=== PATIENT | female | born 1960 | race Caucasian/White ===

== ENCOUNTER 2016-06-30 15:15 | Observation (INO) | payer MEDICAID ==
[2016-06-30] MEDS ORDERED: ACETAMINOPHEN 325 MG TABLET PO PRN (15:29)
[2016-06-30] MEDS ORDERED: MAG-AL PLUS XS SUSP 30 ML UDC PO PRN (15:29)
[2016-06-30] MEDS ORDERED: HOME MEDICATION LIST NEEDED 1 EA EACH MC ONE (15:29)
[2016-06-30] MEDS ORDERED: FUROSEMIDE 40 MG/4 ML VIAL IV SCH (15:45)
[2016-06-30] MEDS ORDERED: ROPINIROLE 1 MG TABLET PO PRN (19:21)
[2016-06-30] MEDS ORDERED: ZOLPIDEM TARTRATE 5 MG TABLET PO PRN (19:23)
[2016-06-30] MEDS ORDERED: DEXTROSE 50% WATER 25 GM/50 ML SYR IV PRN (19:37)
[2016-06-30] MEDS ORDERED: NORMAL SALINE 100 ML IV ONE (20:14)
[2016-06-30] MEDS ORDERED: TERAZOSIN HCL 5 MG CAPSULE PO SCH ×2 (21:00)
[2016-06-30] MEDS: cloNIDine HCL 0.1 MG TABLET PO SCH (21:02)
[2016-06-30] MEDS: AMLODIPINE BESYLATE 5 MG TABLET PO SCH (21:02)
[2016-06-30] MEDS: CARVEDILOL 12.5 MG TABLET PO SCH (21:02)
[2016-06-30] MEDS: INSULIN LISPRO 100 UNIT/ML ML SUBCUT SCH (21:03)
--- NOTE | 2016-06-30 21:10 | HISTORY & PHYSICAL ---
DATE OF ADMISSION: 06/30/16 ATTENDING PHYSICIAN: Larisa Ann MD HISTORY OF PRESENT ILLNESS: The patient came into the clinic today aware that she had been short of breath for over a week, had ringing in her ears, and felt some chest tightness. She was found to have a pulse oxygenation reading in the 60s, with dusky blue fingertips. Her pulse oxygenation was normalized with a non -rebreather mask and 5 liters of oxygen, thereafter stabilizing at 4 liters of O2 by nasal cannula. Her vital signs were fairly normal for her with some hypertension noted. An EKG and laboratory data were surprisingly stable for her as well. Ultimately a chest x-ray and a discussion with her pickling tank operator led me to believe that she does have fluid overload related to her end stage renal disease and would benefit from brief hospitalization for diuresis. PAST MEDICAL HISTORY 1. Type 2 diabetes, recently well controlled, but in the past very poorly controlled. 2. Hypertension, typically not very well controlled. 3. Charcot foot on the right side. 4. Serious chronic disease with dialysis eminent. Creatinine has been 4.6 recently. 5. Obesity. 6. Severe lumbar spine disease, recent epidural steroid injection. 7. Narcolepsy. 8. Sleep apnea. 9. History of hepatitis C, now cleared due to treatment. 10. Chronic obstructive pulmonary disease. 11. Nocturnal hypoxia. PAST SURGICAL HISTORY 1. Fistula in the left arm. ALLERGIES: Cephalosporins. Sulfa. Penicillins. Interestingly she has had fluid retention with steroids before (Kenalog injection in the clinic resulted in fluid overload over a year ago). MEDICATIONS Albuterol inhaler 2 puffs q.4 hours PRN. Amlodipine 10 mg p.o. daily. Lipitor 20 mg p.o. daily. Carvedilol 25 mg p.o. b.i.d. Clonidine 0.1 mg p.o. b.i.d. Doxazosin 2 mg p.o. at h.s. Lasix 80 mg p.o. daily with 40 mg p.o. dosing in the PM. Oxygen at night. Insulin 5 units with meals typically, but she is not very compliant with this. Lantus 90 units at h.s., I believe she is compliant with this. Levothyroxine 50 mcg tab p.o. daily. Requip 2 mg at h.s. PRN restless legs. Sevelamer carbonate (Renvela) 800 mg p.o. 3 times daily with meals. Ambien 10 mg at h.s. Percocet 10/325 mg 1 p.o. q.6 hours PRN pain. IMMUNIZATIONS: Up to date to include pneumonia series. LABORATORY DATA: Stable CBC with no significant anemia. Normal troponin of 0.022. CMP remarkable for glucose of 176, BUN 73, creatinine of 4.7. PHYSICAL EXAMINATION VITAL SIGNS: On arrival to the hospital, patient was afebrile. Blood pressure 184/100, pulse 84, respiratory rate 24, dyspneic. 94% on 4 liters with oxygen at rest. GENERAL: She appears her usual self after stabilizing on oxygen at the clinic. Her clinic was improved. She was alert, oriented and able to make plans, realizing she should not be driving. She was able to access friends to help her get around today. HEENT: Unremarkable. CARDIAC: Regular rate and rhythm with no murmur. CHEST: Decreased breath sounds throughout with crackles heard at both bases. ABDOMEN: Obese, soft and nontender. EXTREMITIES: There is some chronic edema and venous stasis change typical for her, not severe. IMAGING: Chest x-ray done prior to admission revealed findings consistent with congestive heart failure/pulmonary edema at the bases. ASSESSMENT AND PLAN 1. Severe hypoxia in a lady whose history and workup thus far seems to suggest that her kidneys are just not serving her well in this last week. Interestingly , she did get steroids with her epidural steroid injection and this might have been a trigger. The case was discussed with her Glass Loading Equipment Tender Dr. Marx and he agrees that overnight admission with diuresis should resolve or improve her oxygen dependence. He mentioned 80 mg IV Lasix b.i.d. expecting her creatinine to bump up into the low 5s potentially. 2. Urinary retention, probably related to her L-spine issues. She has had urinary retention in recent history and should be self cathing at least twice day and she has not been doing that. This may have resulted in some urinary retention and some back pressure on the kidneys as well. 3. Type 2 diabetes mellitus. Typically easily to control. Will continue Lantus and sliding scale insulin. 4. Hypertension. This is not well controlled at present, especially with her fluid retention. Usual medications will be continued and blood pressure monitored. [facility]
[2016-06-30] MEDS ORDERED: POLYETHYLENE GLYCOL 3350 17 GM POWD.PACK PO ONE (21:33)
[2016-06-30] MEDS: INSULIN GLARGINE,HUM.REC.ANLOG 100 UNITS/ML ML SUBCUT SCH (21:34)
[2016-06-30] MEDS ORDERED: O2 HUMIDIFIER 650 ML BOTTLE INHALATION ONE (21:48)
[2016-06-30] MEDS ORDERED: cloNIDine HCL 0.1 MG TABLET PO SCH (22:15)
[2016-06-30] MEDS ORDERED: BUMETANIDE 1 MG TABLET PO SCH (22:30)
[2016-07-01] MEDS ORDERED: FUROSEMIDE 40 MG/4 ML VIAL IV SCH (01:45)
[2016-07-01] MEDS ORDERED: NORMAL SALINE 100 ML IV ONE ×2 (01:54→16:19)
[2016-07-01] MEDS ORDERED: FUROSEMIDE 40 MG/4 ML VIAL IV ONE ×3 (03:00→15:45)
[2016-07-01] MEDS ORDERED: LEVOTHYROXINE 50 MCG TABLET PO SCH (06:30)
[2016-07-01] MEDS: INSULIN LISPRO 100 UNIT/ML ML SUBCUT SCH ×3 (06:34→17:50)
[2016-07-01 06:52] LABS: CALCIUM 8.8 mg/dL (8.4-10.2); CREATININE 4.7 mg/dL (0.5-1.0); POTASSIUM 4.8 mmol/L (3.5-5.1)
[2016-07-01] MEDS: AMLODIPINE BESYLATE 5 MG TABLET PO SCH (08:47)
[2016-07-01] MEDS: CARVEDILOL 12.5 MG TABLET PO SCH (08:47)
[2016-07-01] MEDS: INSULIN GLARGINE,HUM.REC.ANLOG 100 UNITS/ML ML SUBCUT SCH (08:47)
[2016-07-01] MEDS: cloNIDine HCL 0.1 MG TABLET PO SCH (08:47)
--- NOTE | 2016-07-01 09:32 | RADIOLOGY REPORT ---
HISTORY: Pulmonary edema. COMPARISON: Chest x-ray June 30, 2016. FINDINGS: 2 views of the chest obtained. There is slight interval worsening of pulmonary edema when compared with previous days chest radiogra phs. There are no large effusions or pneumothorax. There remains mild prominence of the cardiac silho uette and pulmonary arteries. Trachea is midline. IMPRESSION: 1. Slight interval worsening pulmonary edema. Results were called. Final Electronic Signature: This report was electronically signed by Ike Hernandez MD on 07/01/2016 9:3 0 AM. martell /
[2016-07-01] MEDS ORDERED: WATER IRRIG 1,000 ML BOTTLE ONE (10:24)
[2016-07-01] MEDS ORDERED: FUROSEMIDE 40 MG/4 ML VIAL ONE ×2 (11:11→16:19)
[2016-07-01] MEDS ORDERED: BUMETANIDE 1 MG TABLET PO SCH (12:15)
[2016-07-01] MEDS ORDERED: ZOLPIDEM TARTRATE 5 MG TABLET PO PRN (12:15)
[2016-07-01] MEDS ORDERED: ALBUTEROL HFA 1 INH INHALER INHALATION PRN (12:16)
[2016-07-01] MEDS ORDERED: cloNIDine HCL 0.1 MG TABLET PO SCH (12:16)
[2016-07-01 14:27] VITALS: RESP 20; TEMP 98
[2016-07-01] MEDS ORDERED: CARVEDILOL 12.5 MG TABLET PO SCH ×2 (15:40→21:00)
--- NOTE | 2016-07-01 15:55 | PROGRESS NOTE: IM APSO ---
Assessment and Plan - Date of Encounter Date of Encounter: 07/01/16 (1) Diabetes mellitus Status: Chronic Assessment and plan: Not difficult to control at this admission or as outpatient, altho' pt is not very compliant with diet or medication, her glc are OK. Current Visit: No (2) Hypertensive urgency Status: Chronic Assessment and plan: BP has been almost impossible to control in recent months, related to impending complete renal failure and need for dialysis. I feel that her JAZIEL done on Sunday has precipitated some fluid retention and worsened BPs, which were absolutely horrible last night, better this AM, but intermittently still touching 180s. I was concerned about what meds are safe and advisable to use in her situation and spoke with Dr Forman denier control operator for Dr Marshall, who was very helpful and rec'd increasing Bblocker, clonidine, consider metolazone ( but we don't have at this hospital) and keep using large doses of Lasix, just follow labs carefully. Hydralazine also an option. Current Visit: No (3) Multiple complications of type 2 diabetes mellitus Status: Chronic Current Visit: No (4) Hypoxia Status: Acute Assessment and plan: Pt typically has borderline O2 sats, but has a profound requirement of 4-5 L at this time, and clearly has severe untreated sleep apnea difficult at night. Pt tried BiPAP and could not tolerate. She needs a sleep study (we discussed as outpt) but I fear with her noncompliance we will have problems finding something tolerable. I believe her present crisis is related to JAZIEL done Sunday ; steroids cause her to retain fluid, driving up BP, she has some pulmonary edema on that basis. Tool [place] tho't with diuresis and intensification of her BP meds we would see the hypoxia resolve. Much of this is a chronic infante and predictable; pt desperately wants to go home. Will diurese as much as possible, send her home with increased meds (same meds, new doses) and have her f/u as outpt tomorrow for labs, vitals. She had ECHO done 2014 with fine EF, doubt any changes there but may pursue ECHO as outpt. Current Visit: Yes - Time Spent With Patient Total time spent with greater than 50% in coordination of care (as documented) at patient's floor/unit and/or counseling patient: Greater than 35 minutes IM: PN Subjective General: fatigue, pain (chronic) Cardiovascular: no chest pain Respiratory: SOB (when she walks especially) IM: PN Objective Exam - I&O/Vital Signs I&O: Intake & Output 07/01/16 07/01/16 07/01/16 05:59 13:59 21:59 Intake Total 840 Output Total 1905 225 Balance -1065 -225 Weight 136.5 kg Intake: IV 120 Left Forearm 120 Oral 720 Output: Urine 1905 225 Other: Urine Appearance Clear Clear Urine Color Pale Pale Yellow Yellow Voiding Method Toilet Toilet # Voids 6 Vital Signs: Last Vital Signs Temp 36.6 C 07/01/16 14:25 Pulse 76 07/01/16 14:25 Resp 20 07/01/16 14:25 BP 164/90 07/01/16 14:24 Pulse Ox 90 07/01/16 15:29 Oxygen Flow Rate 4 Oxygen Delivery Method Nasal Cannula - Constitutional General appearance: Present: cooperative, disheveled, morbidly obese - Eye Eye exam: Present: normal appearance - Respiratory Respiratory exam: Present: clear. Absent: wheezes - Cardiovascular Cardiovascular exam: Present: RRR - GI/Abdominal GI/Abdominal exam: Present: soft. Absent: tenderness - Extremities Exam Extremities exam: Present: edema (chronic venous stasis, severe, wearing support socks) - Neurological Exam Neurological exam: Present: alert, oriented X3 - Psychiatric Psychiatric exam: Present: other (teary about her health) - Lab Labs: Laboratory Last Values Sodium 139 mmol/L (137-145) 07/01/16 06:20 Potassium 4.8 mmol/L (3.5-5.1) 07/01/16 06:20 Chloride 105 mmol/L (98-107) 07/01/16 06:20 Carbon Dioxide 24 mmol/L (22-30) 07/01/16 06:20 BUN 78 mg/dL (7-17) H* 07/01/16 06:20 Creatinine 4.7 mg/dL (0.5-1.0) H 07/01/16 06:20 GFR Calculation 10 mL/min 07/01/16 06:20 Glucose 123 mg/dL (70-100) H 07/01/16 06:20 Calcium 8.8 mg/dL (8.4-10.2) 07/01/16 06:20 Quality Questions - VTE Prophylaxis Assessment VTE Present on Admission?: No Patient at risk for venous thromboembolism?: Yes VTE Risk Level: Moderate Risk Pharmaceutical VTE prophylaxis contraindication reason: not indicated Mechanical VTE prophylaxis contraindication reason: N/A- VTE prophylaxsis ordered
[2016-07-01 19:11] LABS: CALCIUM 8.7 mg/dL (8.4-10.2); CREATININE 4.7 mg/dL (0.5-1.0); POTASSIUM 4.7 mmol/L (3.5-5.1)
[2016-07-01] MEDS ORDERED: BISACODYL 5 MG TABLET PO SCH (19:30)
--- NOTE | 2016-07-01 19:33 | DC SUMMARY: IM Note ---
Discharge Summary: IM/Peds Provider: Date of Admission: 06/30/16 Admitting Provider: MIGUELANGEL DIAS MD Attending Provider: MIGUELANGEL DIAS MD Discharging Provider: MIGUELANGEL DIAS MD Primary Care Provider: Discharge Date: 07/01/16 - Diagnosis (1) Diabetes mellitus Status: Chronic Qualifiers: Diabetes mellitus type: type 2 Diabetes mellitus complication detail: with chronic kidney disease Diabetes mellitus long term care phlebotomist insulin use: with detention use Chronic kidney disease stage: stage 4 (severe) (2) Hypertensive urgency Status: Chronic (3) Multiple complications of type 2 diabetes mellitus Status: Chronic (4) Hypoxia Status: Acute (5) Sleep apnea syndrome Status: Acute Hospital Course: See note from today; extensive thinking and discussions with nephrology; pt probably had fluid retention r/t JAZIEL steroids, with unmanageable HTN and resulting pulmonary edema. She is clinically stable, still with large O2 req, but has diuresed at least 3 L and wants to go home. Will f/u in AM for reassessment of labs and VS. Bp finally reasonable this hoda, O2 reqt not reasonable but per nephrology will take several days to improve and pt doesn't want to stay with us 24 hrs/day understandably. I feel there has been enough assessment for her to be safe with help of friends and family and return in AM. She has a worrisome tolerance for hypoxia, showing the severity of her sleep apnea,but it may be difficult for us to get a solution as she couldn't even tolerate BiPAP. Apnea observed by staff. Pt told 10 yrs ago she had sleep apnea but has not ever been treated. She considers herself to have narcolepsy. - Time Spent with Patient Total time spent providing and/or coordinating discharge services: Discharge - Patient/Caregiver Discharge Instructions Activity Level: Unfortunately, MINIMAL ACTIVITY! Have someone else do everything , and have others drive. Pretty much you need to pretend you are in the hospital. You must be on O2 all the time, use the mask at night on 4 L and use the mask if you need to walk around, because your oxygen still drops when you walk. Diet: Diabetic and kidney diet! Avoid lots of sugars or salt Additional Instructions: Two blood pressure medicines are increased; Clonidine and Coreg; you have these at home, just double them until you get the new prescriptions. Please also take your 80mg Lasix three times a day during these days of trying to shed fluids. Follow up: MIGUELANGEL DIAS MD [Primary Care Provider] - 7 Days Home Medications: cloNIDine HCL [Catapres*] 0.2 mg PO BID #60 tablet Carvedilol [Coreg*] 50 mg PO WITH BRKFST AND DINN #60 tablet Disposition: HOME, SELF-CARE Discharge Summary Data - Medication History Medication History: Home Medications Amlodipine Besylate [Norvasc*] 10 mg PO HS 12/16/14 Atorvastatin Calcium [Lipitor*] 20 mg PO HS 12/16/14 Furosemide [Lasix*] 80 mg PO DAILY 12/16/14 Insulin Glargine,Hum.rec.anlog [Lantus*] 90 units SUBCUT HS 12/16/14 Insulin Lispro [Humalog*] 0 units SUBCUT PRN PRN 12/16/14 Ropinirole HCl [Requip] 2 mg PO HS 12/16/14 Acetaminophen [Tylenol*] 650 mg PO Q6H PRN #0 tablet 07/01/16 Albuterol Hfa [Proventil Inhaler*] 2 puff IH Q4H PRN 07/01/16 Amlodipine Besylate [Norvasc*] 10 mg PO DAILY tablet 07/01/16 Carvedilol [Coreg*] 50 mg PO WITH BRKFST AND DINN #60 tablet 07/01/16 Insulin Glargine,Hum.rec.anlog [Lantus*] 90 units SUBCUT HS ml 07/01/16 Levothyroxine [Synthroid*] 50 mcg PO 0630 tablet 07/01/16 Levothyroxine [Synthroid*] 50 mcg PO BEFORE BREAKFAST 07/01/16 Oxycodone HCl/Acetaminophen [Percocet 10-325 mg Tablet] 1 tab PO Q6H PRN Ropinirole HCl [Ropinirole HCl*] 2 mg PO HS PRN #0 tablet 07/01/16 Sevelamer Carbonate [Renvela] 800 mg PO 3X DAILY WITH MEALS 07/01/16 cloNIDine HCL [Catapres*] 0.2 mg PO BID #60 tablet 07/01/16 oxyCODONE HCL IR [Oxy Ir*] 10 mg PO Q6H PRN #0 tablet 07/01/16 Inpatient Medications 06/30/16 15:29 Acetaminophen [Tylenol] 650 mg PO Q6H PRN Mag-Al Plus Xs Susp [Maalox Liquid] 30 ml PO Q4H PRN 06/30/16 15:45 Furosemide [Lasix Inj] 80 mg IV ONCE 06/30/16 19:20 oxyCODONE HCL IR [Oxy Ir] 10 mg PO Q6H PRN 06/30/16 19:21 Ropinirole HCl [Requip] 2 mg PO HS PRN 06/30/16 19:37 Dextrose 50% Water [D50%] 50 gm IV PRN PRN 06/30/16 20:00 Amlodipine Besylate [Norvasc] 10 mg PO DAILY 06/30/16 21:00 Insulin Lispro [HumaLOG] See Protocol SUBCUT ACHS Terazosin HCl [Hytrin] 5 mg PO HS 07/01/16 06:30 Levothyroxine [Synthroid] 50 mcg PO 0630 07/01/16 12:16 Albuterol Hfa [Proventil Hfa Inhaler] 2 inh INHALATION Q4H PRN cloNIDine HCL [Catapres] 0.2 mg PO BID 07/01/16 14:46 metoprolol TARTRATE [Lopressor] 5 mg IV Q4H PRN 07/01/16 15:40 Carvedilol [Coreg] 50 mg PO WITH BRKFST AND DINN 07/01/16 19:30 Bisacodyl [Dulcolax] 10 mg PO ONCE 07/01/16 21:00 Atorvastatin Calcium [Lipitor] 20 mg PO HS Insulin Glargine,Hum.rec.anlog [Lantus] 90 units SUBCUT HS Procedures and tests throughout hospitalization: Completed Lab Orders 07/01/16 06:20 BASIC METABOLIC PANEL [CHEM] AMDRAW 07/01/16 18:45 BMP [BASIC METABOLIC PANEL] [CHEM] Urgent Completed Imaging Orders 07/01/16 08:44 CXR 2V [id number] [RAD] Stat Pending Orders 06/30/16 15:29 Admit: Observation Routine Activity: Ambulate TID Activity: Bathroom Privileges . Assess pulse oximetry ROOM AIR (DAILY) Intake and Output QSHIFT I&O Obtain weight 0600 Resuscitation Status Routine Titrate Oxygen TITRATE B/W 88-92% Vital Signs ROUTINE VITALS (Q4H) Acetaminophen [Tylenol] 650 mg PO Q6H PRN Mag-Al Plus Xs Susp [Maalox Liquid] 30 ml PO Q4H PRN Smoking Cessation Teaching by RT [RT] Routine 06/30/16 15:45 Furosemide [Lasix Inj] 80 mg IV ONCE 06/30/16 15:50 IS [Incentive Spirometry] Q1H 06/30/16 19:20 oxyCODONE HCL IR [Oxy Ir] 10 mg PO Q6H PRN 06/30/16 19:21 Ropinirole HCl [Requip] 2 mg PO HS PRN 06/30/16 19:37 Finger Stick Blood Sugar ACHS FINGER STICK Hypoglycemia treatment... PER PROTOCOL Dextrose 50% Water [D50%] 50 gm IV PRN PRN 06/30/16 20:00 Amlodipine Besylate [Norvasc] 10 mg PO DAILY 06/30/16 21:00 Insulin Lispro [HumaLOG] See Protocol SUBCUT ACHS Terazosin HCl [Hytrin] 5 mg PO HS 06/30/16 Dinner Diabetic [DIET] 07/01/16 06:30 Levothyroxine [Synthroid] 50 mcg PO 0630 07/01/16 09:48 BiPAP Ventilatory Support (RT) Q4H 07/01/16 12:16 Albuterol Hfa [Proventil Hfa Inhaler] 2 inh INHALATION Q4H PRN cloNIDine HCL [Catapres] 0.2 mg PO BID 07/01/16 14:46 metoprolol TARTRATE [Lopressor] 5 mg IV Q4H PRN 07/01/16 15:40 Carvedilol [Coreg] 50 mg PO WITH BRKFST AND DINN 07/01/16 16:02 Activity: Ambulate with Assist TID ROSSANA Hose . 07/01/16 19:27 Discharge ONCE 07/01/16 19:30 Bisacodyl [Dulcolax] 10 mg PO ONCE 07/01/16 21:00 Atorvastatin Calcium [Lipitor] 20 mg PO HS Insulin Glargine,Hum.rec.anlog [Lantus] 90 units SUBCUT HS Labs on day of discharge: Labs from last 24 hours 07/01/16 07/01/16 18:45 06:20 Sodium 138 139 Potassium 4.7 4.8 Chloride 102 105 Carbon Dioxide 25 24 BUN 81 H* 78 H* Creatinine 4.7 H 4.7 H GFR Calculation 10 10 Glucose 269 H 123 H Calcium 8.7 8.8 IM: Discharge Physical Exam - I&O/Vital Signs I&O: Intake & Output 07/01/16 07/01/16 07/01/16 05:59 13:59 21:59 Intake Total 840 1620 Output Total 4154 642 2861 Balance -0407 -469 -470 Weight 136.5 kg Intake: IV 120 150 Left Forearm 120 150 Oral 720 1470 Output: Urine 7785 636 3952 Other: Urine Appearance Clear Clear Clear Urine Color Pale Pale Pale Yellow Yellow Yellow Voiding Method Toilet Toilet Toilet # Voids 6 Vital Signs: Last Vital Signs Temp 36.6 C 07/01/16 14:25 Pulse 76 07/01/16 14:25 Resp 20 07/01/16 14:25 BP 164/90 07/01/16 14:24 Pulse Ox 90 07/01/16 15:29 Oxygen Flow Rate 4 Oxygen Delivery Method Nasal Cannula - Constitutional General appearance: Present: cooperative, disheveled, morbidly obese - Eye Eye exam: Present: normal appearance - Respiratory Respiratory exam: Present: clear. Absent: wheezes - Cardiovascular Cardiovascular exam: Present: RRR - GI/Abdominal GI/Abdominal exam: Present: soft. Absent: tenderness - Extremities Exam Extremities exam: Present: edema (chronic venous stasis, severe, wearing support socks) - Neurological Exam Neurological exam: Present: alert, oriented X3 - Psychiatric Psychiatric exam: Present: other (teary about her health)
[2016-07-01] MEDS ORDERED: BISACODYL 5 MG TABLET PO ONE (19:34)
[2016-07-01 19:40] VITALS: BP 142/82; PULSE 68; O2SAT 91
[2016-07-01] MEDS ORDERED: INSULIN GLARGINE,HUM.REC.ANLOG 100 UNITS/ML ML SUBCUT SCH ×2 (21:00)
[2016-07-01] MEDS ORDERED: ATORVASTATIN CALCIUM 10 MG TABLET PO SCH (21:00)
[2016-07-01] MEDS ORDERED: AMLODIPINE BESYLATE 5 MG TABLET PO SCH (21:00)
[2016-07-02] MEDS ORDERED: LEVOTHYROXINE 50 MCG TABLET PO SCH (06:30)
== END 2016-07-01 19:27 | disposition home or self-care (01) ==
LOC: IN 15:15
PROVIDERS: ADMIT Family Medicine; ATTEND Family Medicine
DX: E11.22 Type 2 diabetes mellitus with diabetic chronic kidney disease (principal); N18.9 Chronic kidney disease, unspecified; I16.0 Hypertensive urgency; G47.30 Sleep apnea, unspecified; E66.9 Obesity, unspecified; G47.419 Narcolepsy without cataplexy; E11.610 Type 2 diabetes mellitus with diabetic neuropathic arthropathy; M48.06 Spinal stenosis, lumbar region; J44.9 Chronic obstructive pulmonary disease, unspecified; G47.36 Sleep related hypoventilation in conditions classified elsewhere; Z86.19 Personal history of other infectious and parasitic diseases; Z79.4 Long term (current) use of insulin; Z79.899 Other long term (current) drug therapy; Z99.81 Dependence on supplemental oxygen
CPT/HCPCS: 36415; 51798; 71020; 80048; 93005; 96372; 96374; 96375; 96376; A4217; E0555; G0378; G0379; J1815; J1940